=== PATIENT | male | born 1975 | race Caucasian/White ===

== ENCOUNTER → 2020-06-10 13:38 | Outpatient (CLI) | payer BC ==
[2020-02-20 16:17] VITALS: BMI 38.7
[~2020-06-10 13:38] MED LIST: ABILIFY10 MG PO; AZITHROMYCIN500 MG PO; CRESTOR10 MG PO; DECADRON4 MG PO; GEMFIBROZIL600 MG PO; LIPITOR20 MG; LISINOPRIL5 MG PO; MELATONIN 3 MG1 TAB PO; OMNICEF300 MG PO; VITAMIN B-1100 M1 PO; VITAMIN C PO; VITAMIN D325 MC1 PO
[2020-06-10 14:24] LABS: SARS-CoV-2 ANTIGEN NEGATIVE- SARS-COV-2 (NEGATIVE)
--- NOTE | 2020-06-10 16:04 | NUR ---
UNABLE TO DO WALK TEST, COULD NOT HAND PAINTER PULSE OX AT ALL
== END | disposition home or self-care (01) ==
LOC: D.RT 13:30
PROVIDERS: ATTEND Internal Medicine Pulmonary Disease
DX: R06.09 Other forms of dyspnea (principal); Z11.52 Encounter for screening for COVID-19